=== PATIENT | female | born 1955 | race Caucasian/White ===

== ENCOUNTER 2017-07-25 14:45 | Emergency (ER) | payer BC ==
[2017-07-25] MEDS ORDERED: Ketorolac Tromethamine 30 MG/ML VIAL ONE (15:09)
[2017-07-25 15:30] LABS: #Basophils 0.1 thou/uL (0.0-0.2); #Eosinphils 0.2 thou/uL (0.0-0.7); #Lymphocytes 3.3 thou/uL (1.20-3.40); #Monocytes 0.5 thou/uL (0.11-0.59); #Neutrophils 3.7 thou/uL (1.40-6.50); %Basophils 0.9 % (0.0-1.0); %Eosinophils 2.3 % (0.0-10.0); %Lymphocytes 42.7 % (21.0-51.0); %Monocytes 6.2 % (0.0-10.0); Hemoglobin 13.2 g/dL (12.0-16.0); Mean Corpuscular HGB CONC 34.8 g/dL (32.0-36.0); Mean Corpuscular Volume 97.8 fl (81.0-99.0); Platelet Count 265 thou/uL (130-400); Red Blood Cell (RBC) Count 3.88 mill/uL (4.20-5.40); White Blood Cell (WBC) Count 7.6 thou/uL (4.8-10.8)
[2017-07-25 15:39] LABS: ALT (SGPT) 22 U/L (8-55); AST (SGOT) 25 U/L (5-34); Albumin 4.3 g/dL (3.4-4.8); Anion Gap 16 mmol/L (10-20); Bilirubin, Total 0.3 mg/dL (0.2-1.2); Calc. Creatinine Clearance 0 mL/min (70-130); Calcium 9.7 mg/dL (7.8-10.44); Carbon Dioxide 26 mmol/L (23-31); Chloride 104 mmol/L (98-107); Estimated GFR-MDRD 74; Glucose 90 mg/dL (80-115); Potassium 3.7 mmol/L (3.5-5.1); Sodium 142 mmol/L (136-145)
--- NOTE | 2017-07-25 15:40 | RAD ---
CHEST 1 VIEW: HISTORY: Altered mental status. COMPARISON: None. FINDINGS: Lungs are clear. No pneumothorax or effusion. Cardiac silhouette and mediastinal contours are norm al. IMPRESSION: No acute intrathoracic abnormality. POS: [facility]
--- NOTE | 2017-07-25 15:41 | CT ---
CT BRAIN WITHOUT CONTRAST: HISTORY: Headache. COMPARISON: None. FINDINGS: No territorial infarct or hemorrhage. No midline shift or mass effect. Ventricular size and extraa xial CSF spaces are normal. Calvarium is intact. Paranasal sinuses and mastoids are clear. Prominent venous lakes or arachnoid granulations in right occipital bone. IMPRESSION: No acute intracranial abnormality. POS: [facility]
[2017-07-25 15:54] LABS: Alkaline Phosphatase 82 U/L (40-150); BUN (Urea Nitrogen) 16 mg/dL (9.8-20.1); Globulin 3.3 g/dL (2.4-3.5); Protein, Total 7.6 g/dL (6.0-8.3)
[2017-07-25] MEDS ORDERED: methylPREDNISolone Sod Succ/PF 125 MG/2 ML VIAL ONE (16:22)
== END 2017-07-25 16:35 | disposition home or self-care (01) ==
LOC: MADERS 14:45
DX: R51 Headache (principal)
CPT/HCPCS: 70450; 71010; 80053; 84443; 85025; 85652; 94760; 96374; 96375; J1885; J2930